=== PATIENT | male | born 1995 | race Two or more races ===

== ENCOUNTER 2016-05-16 19:39 | Emergency (ER) | payer BC ==
[~2016-05-16] VITALS: Ht 185.4 cm; Wt 62.6 kg
[2016-05-16 20:00] VITALS: BP 108/59
[2016-05-16] MEDS ORDERED: CEFTRIAXONE 500 MG VIAL IM ONE (20:30)
[2016-05-16] MEDS ORDERED: AZITHROMYCIN 250 MG TABLET PO ONE (20:30)
[2016-05-16 21:03] LABS: APPEARANCE,URINE SL CLOUDY (CLEAR); BILIRUBIN,URINE NEGATIVE (NEGATIVE); BLOOD, URINE 3+ Ery/uL (NEGATIVE); COLOR,URINE YELLOW (YELLOW); KETONES,URINE NEGATIVE (NEGATIVE); LEUKOCYTE ESTERASE ,URINE 2+ (NEGATIVE); NITRITE, URINE NEGATIVE (NEGATIVE); PROTEIN,URINE TRACE mg/dl (NEGATIVE); UGLUCOSE NEGATIVE (NEGATIVE)
[2016-05-16] MEDS ORDERED: CEFTRIAXONE 500 MG VIAL ONE (21:33)
[2016-05-16] MEDS ORDERED: AZITHROMYCIN 250 MG TABLET ONE (21:33)
[2016-05-16 22:08] LABS: ADD URINE CULTURE YES; BACTERIA,URINE 2+ /HPF (None Seen); SQUAMOUS EPITHELIAL CELL,UR 0-2 /HPF (None Seen); WBC,URINE 51-80 /HPF (0-3)
[2016-05-19 01:17] LABS: *NEISSERIA GONORRHOEAE NAA Negative (Negative); CHLAMYDIA TRACHOMATIS NAA Negative (Negative)
== END 2016-05-16 21:44 | disposition home or self-care (01) ==
LOC: ER 19:39
DX: N39.0 Urinary tract infection, site not specified (principal); A64 Unspecified sexually transmitted disease; F17.200 Nicotine dependence, unspecified, uncomplicated; Z72.0 Tobacco use
CPT/HCPCS: 81001; 87086; 87491; 87591; 96372; 99284; A4606; J0696; Z7610; 81000-TC